=== PATIENT | male | born 1965 | race African-American/Black ===

== ENCOUNTER 2018-11-18 18:30 | Emergency (ER) | payer SELFPAY ==
[~2018-11-18] VITALS: Ht 165.1 cm; Wt 68.0 kg
[2018-11-18 19:42] LABS: BASO # 0.1 x10^3/uL (0.0-0.2); BASO % 1 % (0-3); EOS % 0 % (0-3); HEMATOCRIT 36.8 % (39.0-53.0); LYMPH % 9 % (24-48); MEAN CORPUSCULAR HEMOGLOBIN 33 pg (25-35); MEAN CORPUSCULAR HGB CONC 35 g/dL (31-37); MEAN CORPUSCULAR VOLUME 93 fL (79-100); MONO # 1.9 x10^3/uL (0.0-1.1); MONO % 19 % (0-9); NEUT # 7.3 x10^3uL (1.8-7.7); NEUT % 71 % (31-73); PLATELET COUNT 129 x10^3/uL (140-400); RED BLOOD COUNT 3.95 x10^6/uL (4.30-5.70); RED CELL DISTRIBUTION WIDTH 12.1 % (11.5-14.5); WHITE BLOOD COUNT 10.3 x10^3/uL (4.0-11.0)
[2018-11-18 19:55] LABS: PROTHROMBIN TIME PATIENT 13.1 SEC (11.7-14.0)
[2018-11-18 19:57] LABS: CALCIUM 9.2 mg/dL (8.5-10.1); CREATININE 1.2 mg/dL (0.7-1.3); GFR 76.1; POTASSIUM 3.1 mmol/L (3.5-5.1)
[2018-11-18 20:03] LABS: ALBUMIN 2.7 g/dL (3.4-5.0); ALBUMIN/GLOBULIN RATIO 0.5 (1.0-1.7); TOTAL PROTEIN 8.1 g/dL (6.4-8.2)
[2018-11-18] MEDS ORDERED: POTASSIUM CHLORIDE 20 MEQ TABLET.ER. PO ONE (20:30)
[2018-11-18] MEDS ORDERED: cefTRIAXone IV Push 1 GM VIAL. IVP ONE (20:30)
[2018-11-18] MEDS ORDERED: DOXYCYCLINE HYCLATE 100 MG TABLET PO ONE (20:30)
[2018-11-18] MEDS ORDERED: IV NORMAL SALINE 1000ML BAG 1,000 ML IV ONE (20:30)
--- NOTE | 2018-11-18 20:38 | RAD ---
EXAM: Chest, single view. HISTORY: Chest pain. COMPARISON: None. FINDINGS: A frontal view of the chest obtained. There is bilateral lower lobe interstitial infiltrate or chronic interstitial change. There is no consolidation, pleural effusion or pneumothorax. The heart is normal in size. IMPRESSION: Bilateral lower lobe interstitial infiltrate or chronic interstitial changes. Electronically signed by: Alondra Brown MD (11/18/2018 8:35 PM) [facility]
[2018-11-18 20:56] LABS: % BANDS 1 % (0-9); % EOS 1 % (0-5); % LYMPHS 8 % (24-48); % MONOS 12 % (0-10); % SEGS 78 % (35-66); PLT ESTIMATE ADEQUATE (ADEQUATE)
[2018-11-18] MEDS ORDERED: DOXY100T PO (20:56)
[2018-11-18 20:57] LABS: ANISOCYTOSIS SLIGHT; POLYCHROMASIA SLIGHT; TOXIC GRANULATION SLIGHT
[2018-11-18 21:23] VITALS: BP 112/80
--- NOTE | 2018-11-18 21:57 | PHYS DOC ---
Past Medical History Past Medical History: Unknown Additional Past Medical Histor: PT DOES NOT SEE REGULARLY Past Surgical History: Splenectomy Alcohol Use: Heavy Drug Use: None Adult General Chief Complaint Chief Complaint: FATIGUE HPI HPI Patient is a 53 year old male presenting with generalized weakness for the last 2-3 days he's has a cough productive of some white and yellow-colored sputum felt warm to touch no definite fever has sharp chest pain with coughing only really not that short of breath just feeling weak had some nausea earlier in the week is recovering for pneumonia 2 weeks ago patient is a smoker does not have a primary doctor does not take any medications. Review of Systems Review of Systems Constitutional: D Eyes: Denies change in visual acuity, redness, or eye pain [] HENT: GI: Denies abdominal pain, bloody stools or diarrhea [] : Denies dysuria or hematuria [] Musculoskeletal: Denies back pain or joint pain [] Integument: Denies rash or skin lesions [] Neurologic: Denies headache, focal weakness or sensory changes [] Endocrine: Denies polyuria or polydipsia [] All other systems were reviewed and found to be within normal limits, except as documented in this note. Current Medications Current Medications Current Medications Medications (Trade) Dose Ordered Sig/Charles Start Time Stop Time Status Last Admin Dose Admin Ceftriaxone Sodium (Rocephin) 1 gm 1X ONCE 11/18/18 20:30 11/18/18 20:31 DC 11/18/18 20:32 1 GM Doxycycline Hyclate (Vibra-Tab) 100 mg 1X ONCE 11/18/18 20:30 11/18/18 20:31 DC 11/18/18 20:33 100 MG Potassium Chloride (Klor-Con) 40 meq 1X ONCE 11/18/18 20:30 11/18/18 20:31 DC 11/18/18 20:33 40 MEQ Sodium Chloride 1,000 ml @ 1,000 mls/hr 1X ONCE 11/18/18 20:30 11/18/18 21:22 DC 11/18/18 20:33 1,000 MLS/HR Allergies Allergies Allergies Coded Allergies Type Severity Reaction Last Updated Verified No Known Drug Allergies 11/18/18 No Physical Exam Physical Exam Constitutional: Well developed, well nourished, no acute distress, non-toxic appearance. [] HENT: Normocephalic, atraumatic, bilateral external ears normal, oropharynx dry no oral exudates, nose normal. [] Eyes: PERRLA, EOMI, conjunctiva normal, no discharge. [] Neck: Normal range of motion, no tenderness, supple, no stridor. [] Cardiovascular:Heart rate regular rhythm, no murmur [] Lungs & Thorax: Decreased breath sounds at the bilateral lung bases Abdomen: Bowel sounds normal, soft, no tenderness, no masses, no pulsatile masses. [] Skin: Warm, dry, no erythema, no rash. [] Back: No tenderness, no CVA tenderness. [] Extremities: No tenderness, no cyanosis, no clubbing, ROM intact, no edema. [] Neurologic: Alert and oriented X 3, normal motor function, normal sensory function, no focal deficits noted. [] Psychologic: Affect normal, judgement normal, mood normal. [] Current Patient Data Vital Signs Vital Signs Date Time Temp Pulse Resp B/P (MAP) Pulse Ox O2 Delivery O2 Flow Rate FiO2 11/18/18 21:23 70 19 112/80 (91) 97 Room Air 11/18/18 19:00 98.2 98.2 Lab Values Laboratory Tests Test 11/18/18 19:33 White Blood Count 10.3 x10^3/uL (4.0-11.0) Red Blood Count 3.95 x10^6/uL (4.30-5.70) L Hemoglobin 13.0 g/dL (13.0-17.5) Hematocrit 36.8 % (39.0-53.0) L Mean Corpuscular Volume 93 fL (79-100) Mean Corpuscular Hemoglobin 33 pg (25-35) Mean Corpuscular Hemoglobin Concent 35 g/dL (31-37) Red Cell Distribution Width 12.1 % (11.5-14.5) Platelet Count 129 x10^3/uL (140-400) L Neutrophils (%) (Auto) 71 % (31-73) Lymphocytes (%) (Auto) 9 % (24-48) L Monocytes (%) (Auto) 19 % (0-9) H Eosinophils (%) (Auto) 0 % (0-3) Basophils (%) (Auto) 1 % (0-3) Neutrophils # (Auto) 7.3 x10^3uL (1.8-7.7) Lymphocytes # (Auto) 1.0 x10^3/uL (1.0-4.8) Monocytes # (Auto) 1.9 x10^3/uL (0.0-1.1) H Eosinophils # (Auto) 0.0 x10^3/uL (0.0-0.7) Basophils # (Auto) 0.1 x10^3/uL (0.0-0.2) Segmented Neutrophils % 78 % (35-66) H Band Neutrophils % 1 % (0-9) Lymphocytes % 8 % (24-48) L Monocytes % 12 % (0-10) H Eosinophils % 1 % (0-5) Toxic Granulation Slight Platelet Estimate Adequate (ADEQUATE) Large Platelets Occ Polychromasia Slight Anisocytosis Slight Prothrombin Time 13.1 SEC (11.7-14.0) Prothrombin Time INR 1.0 (0.8-1.1) Sodium Level 129 mmol/L (136-145) L Potassium Level 3.1 mmol/L (3.5-5.1) L Chloride Level 92 mmol/L (98-107) L Carbon Dioxide Level 26 mmol/L (21-32) Anion Gap 11 (6-14) Blood Urea Nitrogen 23 mg/dL (8-26) Creatinine 1.2 mg/dL (0.7-1.3) Estimated GFR (Cockcroft-Gault) 76.1 BUN/Creatinine Ratio 19 (6-20) Glucose Level 104 mg/dL (70-99) H Calcium Level 9.2 mg/dL (8.5-10.1) Total Bilirubin 1.0 mg/dL (0.2-1.0) Aspartate Amino Transferase (AST) 60 U/L (15-37) H Alanine Aminotransferase (ALT) 59 U/L (16-63) Alkaline Phosphatase 77 U/L (46-116) Troponin I Quantitative < 0.017 ng/mL (0.000-0.055) Total Protein 8.1 g/dL (6.4-8.2) Albumin 2.7 g/dL (3.4-5.0) L Albumin/Globulin Ratio 0.5 (1.0-1.7) L Laboratory Tests 11/18/18 19:33 Laboratory Tests 11/18/18 19:33 EKG EKG [] Radiology/Procedures Radiology/Procedures [] Impressions: FINDINGS: A frontal view of the chest obtained. There is bilateral lower lobe interstitial infiltrate or chronic interstitial change. There is no consolidation, pleural effusion or pneumothorax. The heart is normal in size. IMPRESSION: Bilateral lower lobe interstitial infiltrate or chronic interstitial changes. Electronically signed by: Alondra Brown MD (11/18/2018 8:35 PM) [facility] DICTATED and SIGNED BY: ALONDRA BROWN MD Course & Med Decision Making Course & Med Decision Making Pertinent Labs and Imaging studies reviewed. (See chart for details) []53-year-old male presenting with pneumonia. Patient is well-appearing mild hyponatremia oxygenation blood pressure adequate patient is taking orals and appears appropriate for outpatient management at this time. We did give IV antibiotics and IV normal saline in the emergency room and some oral potassium as well. Patient was given a prescription for antibiotics and was instructed to return for any issues with completing the antibiotic course or feeling worse rather than better in the next 2-3 days. In addition he was advised to follow-up for a repeat chest x-ray within 6 weeks and I gave him contact information for local primary care doctor's and encouraged follow-up within a month or so as well. Dragon Disclaimer Dragon Disclaimer This electronic medical record was generated, in whole or in part, using a voice recognition dictation system. Departure Departure Impression: Primary Impression: Pneumonia Disposition: 01 HOME, SELF-CARE Condition: STABLE Patient Instructions: Pneumonia, Adult, Fiht-df-Isam Scripts Doxycycline Hyclate (DOXYCYCLINE HYCLATE) 100 Mg Tablet 1 TAB PO BID, #20 TAB Prov: MYRA COLLINS MD 11/18/18 MYRA COLLINS MD Nov 18, 2018 21:57
--- NOTE | 2018-11-19 05:58 | EKG ---
[facility] [address] [place] [id number] Test Date: 2018-11-18 Test Time: 19:06:30 Pat Name: PACO DYER Department: Room: Gender: Maintenance Helper: : 1965 Requested By: MYRA COLLINS Order Number: [id number] Reading MD: Measurements Intervals [place] Rate: 77 P: 56 [place]: 146 QRS: 53 QRSD: 88 T: 52 QT: 370 QTc: 425 Interpretive Statements SINUS RHYTHM NON SPECIFIC ST-T ABNORMALITY (ELEVATION) OTHERWISE NORMAL ECG No previous ECG available for comparison
== END 2018-11-18 21:22 | disposition home or self-care (01) ==
LOC: ER 18:30
DX: J18.9 Pneumonia, unspecified organism (principal); F10.20 Alcohol dependence, uncomplicated; R07.89 Other chest pain; R53.1 Weakness; Z90.81 Acquired absence of spleen; Y90.9 Presence of alcohol in blood, level not specified
CPT/HCPCS: 36415; 71045; 80053; 84484; 85007; 85025; 85610; 93005; 96374; 99285; J0696; J7030